=== PATIENT | female | born 1970 | race Caucasian/White ===

== ENCOUNTER 2018-10-17 14:48 | Emergency (ER) | payer OTHER ==
[~2018-10-17] VITALS: Ht 160 cm; Wt 68.9 kg
[2018-10-17] MEDS ORDERED: TRAMADOL HCL 50 MG TAB PO ONE (15:00)
--- NOTE | 2018-10-17 16:15 | Diagnostic Imaging Report ---
Exam: Left hip 2 views History: Pain, fall Comparison: None. Findings: No fracture or malalignment. Joint spaces preserved. No abnormal soft tissue calcification or soft tissue defect. Impression: No acute osseous abnormality Signed by: Dr. Bob Borges M.D. on 10/17/2018 4:12 PM
--- NOTE | 2018-10-17 16:17 | Diagnostic Imaging Report ---
Exam: Lumbar spine AP lateral oblique History: Pain Comparison: None. Findings: No fracture or malalignment. Disc spaces preserved. No abnormal soft tissue calcification or soft tissue defect. Impression: No acute osseous abnormality Signed by: Dr. Bob Borges M.D. on 10/17/2018 4:14 PM
[2018-10-17 17:10] VITALS: BP 132/92
== END 2018-10-17 17:12 | disposition home or self-care (01) ==
LOC: ER 14:48
DX: S70.02XA Contusion of left hip, initial encounter (principal); S39.012A Strain of muscle, fascia and tendon of lower back, initial encounter; W01.0XXA Fall on same level from slipping, tripping and stumbling without subsequent striking against object, initial encounter; Y92.008 Other place in unspecified non-institutional (private) residence as the place of occurrence of the external cause; I10 Essential (primary) hypertension
CPT/HCPCS: 72110; 99283